=== PATIENT | female | born 1985 | race Caucasian/White ===

== ENCOUNTER 2017-09-29 05:55 | Inpatient (IN) | payer SELFPAY ==
[~2017-09-29] VITALS: Ht 160 cm; Wt 62.6 kg
[2017-09-29] MEDS ORDERED: OXYTOCIN 20 UNITS in LACTATED RINGERS 1,000 ML IV SCH (06:45)
[2017-09-29] MEDS ORDERED: PROMETHAZINE 25 MG/ML VIAL IVP PRN (06:45)
[2017-09-29] MEDS ORDERED: NALBUPHINE HYDROCHLORIDE 10 MG/ML VIAL IVP PRN (06:45)
[2017-09-29 07:11] LABS: BASOPHILS # (AUTO) 0.2 K/uL (0.00-0.22); BASOPHILS % (AUTO) 2.5 % (0.0-2.0); EOSINOPHILS # (AUTO) 0.1 K/uL (0-0.4); EOSINOPHILS % (AUTO) 1.8 % (0.0-4.0); HEMATOCRIT 39.4 % (36-48); HEMOGLOBIN 13.3 g/dL (12.0-16.0); LYMPHOCYTES # (AUTO) 1.3 K/uL (2.5-16.5); LYMPHOCYTES % (AUTO) 17.2 % (20.5-51.1); MEAN CORPUSCULAR HEMOGLOBIN 31 pg (27-31); MEAN CORPUSCULAR HGB CONC 34 g/dL (33-37); MEAN CORPUSCULAR VOLUME 91 fL (80-94); MONOCYTES # (AUTO) 0.6 K/uL (0.8-1.0); MONOCYTES % (AUTO) 8.1 % (1.7-9.3); NEUTROPHILS # (AUTO) 5.5 K/uL (1.8-7.7); NEUTROPHILS % (AUTO) 70.4 % (42.2-75.2); PLATELET COUNT (AUTO) 212 K/uL (140-450); RED BLOOD CELL COUNT(AUTO) 4.34 MIL/uL (4.20-5.40); RED CELL DISTRIBUTION WIDTH 13.8 % (11.6-13.7); WHITE BLOOD COUNT (AUTO) 7.7 K/uL (4.8-10.8)
[2017-09-29 07:20] LABS: CARBON DIOXIDE 22.4 mmol/L (21-32); POTASSIUM 3.5 mmol/L (3.5-5.1)
[2017-09-29 07:21] LABS: ANION GAP 16.1 (8-16); CREATININE 0.7 mg/dL (0.6-1.3)
[2017-09-29 07:22] LABS: APPEARANCE,URINE CLEAR (CLEAR); BILIRUBIN,URINE NEGATIVE (NEGATIVE); BLOOD, URINE NEGATIVE (NEGATIVE); COLOR,URINE YELLOW (YELLOW); LEUKOCYTE ESTERASE ,URINE NEGATIVE (NEGATIVE); NITRITE, URINE NEGATIVE (NEGATIVE); UGLUCOSE NEGATIVE (NEGATIVE)
[2017-09-29 07:26] LABS: ALBUMIN 2.5 g/dL (3.4-5.0); TOTAL BILIRUBIN 0.3 mg/dL (0.0-1.0)
[2017-09-29] MEDS ORDERED: OXYTOCIN 10 UNITS/ML VIAL IM SCH (07:30)
[2017-09-29] MEDS: LACTATED RINGERS 1,000 ML IV SCH ×2 (07:45→14:45)
[2017-09-29] MEDS ORDERED: AMPICILLIN 2,000 MG in NACL 0.9% 100 ML IV ONE (08:00)
--- NOTE | 2017-09-29 08:54 | NUR ---
PATIENT HAS BEEN SCREENED AND CATEGORIZED LOW NUTRITION RISK. PATIENT WILL BE SEEN WITHIN 7 DAYS OF ADMISSION. 10/05/[address]
[2017-09-29] MEDS: AMPICILLIN 1,000 MG in NACL 0.9% 50 ML IV SCH ×3 (12:59→20:46)
[2017-09-29 14:37] LABS: RAPID PLASMA REAGIN NON-REACTIVE (Non Reactiv)
[2017-09-29] MEDS ORDERED: AMPICILLIN 1,000 MG VIAL ONE ×2 (16:35→20:20)
[2017-09-29] MEDS ORDERED: MISOPROSTOL 25 MCG TAB ONE (16:44)
[2017-09-29] MEDS ORDERED: MISOPROSTOL 25 MCG TAB PO SCH (16:45)
[2017-09-29] MEDS ORDERED: NALBUPHINE HYDROCHLORIDE 10 MG/ML VIAL ONE (21:30)
[2017-09-29] MEDS ORDERED: PROMETHAZINE 25 MG/ML VIAL ONE (21:31)
[2017-09-29] MEDS ORDERED: OXYTOCIN 10 UNITS/ML VIAL ONE (23:49)
[2017-09-30] MEDS ORDERED: LIDOCAINE 1% 50 ML ONE (00:21)
[2017-09-30] MEDS ORDERED: MEASLES, MUMPS, AND RUBELLA 1 VIAL SQVAC PRN (00:35)
[2017-09-30] MEDS ORDERED: BENZOCAINE/MENTHOL 20%-0.5% 60 GM CAN TP PRN (00:35)
[2017-09-30] MEDS ORDERED: TEMAZEPAM 15 MG CAP PO PRN (00:35)
[2017-09-30] MEDS ORDERED: METHYLERGONOVINE 0.2 MG/ML AMP IM PRN (00:35)
[2017-09-30] MEDS ORDERED: oxyCODONE/APAP 5/325 MG 1 TAB TAB PO PRN (00:35)
[2017-09-30] MEDS ORDERED: HYDROcodone/APAP 5/325 MG 1 TAB TAB PO PRN (00:35)
[2017-09-30] MEDS ORDERED: IBUPROFEN 800 MG TAB ONE (02:19)
[2017-09-30] MEDS: IBUPROFEN 800 MG TAB PO PRN ×3 (02:21→21:40)
[2017-09-30] MEDS: LEVOTHYROXINE 0.025 MG TAB PO SCH (08:19)
[2017-10-01] MEDS ORDERED: INFLUENZA VIRUS VACCINE QUAD 0.5 ML SYR IMVAC SCH (02:40)
[2017-10-01 07:38] LABS: HEMOGLOBIN 10.9 g/dL (12.0-16.0)
[2017-10-01] MEDS: LEVOTHYROXINE 0.025 MG TAB PO SCH (07:51)
[2017-10-01] MEDS ORDERED: IBUP-1842 PO (10:45)
[2017-10-01] MEDS ORDERED: DOCUSATE SOD/SENNA 50/8.6 MG 1 TAB PO SCH (21:00)
== END 2017-10-01 14:30 | disposition home or self-care (01) | DRG 775 ==
LOC: MLD 05:55 → MFCC 09-30 02:50
PROVIDERS: ADMIT Obstetrics & Gynecology; ATTEND Obstetrics & Gynecology
PROC: 10E0XZZ Delivery of Products of Conception, External Approach (ICD-10-PCS; principal; 2017-09-30)
PROC: 0KQM0ZZ Repair Perineum Muscle, Open Approach (ICD-10-PCS; 2017-09-30)
PROC: 3E0234Z Introduction of Serum, Toxoid and Vaccine into Muscle, Percutaneous Approach (ICD-10-PCS; 2017-10-01)
PROC: 3E0234Z Introduction of Serum, Toxoid and Vaccine into Muscle, Percutaneous Approach (ICD-10-PCS; 2017-10-01)
PROC: 3E0234Z Introduction of Serum, Toxoid and Vaccine into Muscle, Percutaneous Approach (ICD-10-PCS; 2017-10-01)
DX: O42.92 Full-term premature rupture of membranes, unspecified as to length of time between rupture and onset of labor (principal); O24.420 Gestational diabetes mellitus in childbirth, diet controlled; E03.9 Hypothyroidism, unspecified; O99.284 Endocrine, nutritional and metabolic diseases complicating childbirth; O70.1 Second degree perineal laceration during delivery; Z37.0 Single live birth; Z3A.39 39 weeks gestation of pregnancy; Z23 Encounter for immunization; Z83.3 Family history of diabetes mellitus; Z80.42 Family history of malignant neoplasm of prostate; Z83.49 Family history of other endocrine, nutritional and metabolic diseases; Z91.09 Other allergy status, other than to drugs and biological substances
CPT/HCPCS: 36415; 59200; 59409; 80053; 81003; 85018; 85025; 86592; 86762; 86886; 86900; 86901; 90658; 90707; 90715; J0290; J2001; J2300; J2550; J2590; J7120

== ENCOUNTER 2019-06-23 18:51 | Inpatient (IN) | payer SELFPAY ==
[~2019-06-23] VITALS: Ht 160 cm; Wt 65.3 kg
[~2019-06-23 18:51] MED LIST: IBUP-1842 PO
[2019-06-23] MEDS ORDERED: PREN-380 PO (20:47)
[2019-06-23] MEDS ORDERED: SYN.075 PO (20:48)
[2019-06-23] MEDS ORDERED: LACTATED RINGERS 1,000 ML IV SCH (20:50)
[2019-06-23] MEDS ORDERED: PROMETHAZINE 25 MG/ML VIAL IM PRN (20:50)
[2019-06-23 21:43] LABS: BASOPHILS % (AUTO) 0.3 % (0.0-2.0); EOSINOPHILS % (AUTO) 0.4 % (0.0-4.0); HEMATOCRIT 40.5 % (36-48); HEMOGLOBIN 13.6 g/dL (12.0-16.0); LYMPHOCYTES # (AUTO) 1.5 K/uL (2.5-16.5); LYMPHOCYTES % (AUTO) 15.2 % (20.5-51.1); MEAN CORPUSCULAR HEMOGLOBIN 32 pg (27-31); MEAN CORPUSCULAR HGB CONC 34 g/dL (33-37); MONOCYTES # (AUTO) 0.7 K/uL (0.8-1.0); MONOCYTES % (AUTO) 6.9 % (1.7-9.3); NEUTROPHILS # (AUTO) 7.9 K/uL (1.8-7.7); NEUTROPHILS % (AUTO) 77.2 % (42.2-75.2); PLATELET COUNT (AUTO) 188 K/uL (140-450); RED BLOOD CELL COUNT(AUTO) 4.26 MIL/uL (4.20-5.40); RED CELL DISTRIBUTION WIDTH 14.4 % (11.6-13.7); WHITE BLOOD COUNT (AUTO) 10.2 K/uL (4.8-10.8)
[2019-06-23 21:54] LABS: ANION GAP 12.4 (8-16); CARBON DIOXIDE 23.2 mmol/L (21-32); CREATININE 0.7 mg/dL (0.6-1.3); POTASSIUM 3.6 mmol/L (3.5-5.1)
[2019-06-23] MEDS ORDERED: NALBUPHINE 10 MG/ML AMP ONE ×2 (21:58→23:44)
[2019-06-23 21:59] LABS: ALBUMIN 2.7 g/dL (3.4-5.0); TOTAL BILIRUBIN 0.6 mg/dL (0.0-1.0)
[2019-06-23] MEDS: NALBUPHINE 10 MG/ML AMP IVP PRN (22:02)
[2019-06-23 22:22] LABS: APPEARANCE,URINE CLEAR (CLEAR); COLOR,URINE YELLOW (YELLOW); UGLUCOSE NEGATIVE (NEGATIVE)
[2019-06-23 22:23] LABS: BILIRUBIN,URINE NEGATIVE (NEGATIVE); BLOOD, URINE TRACE (NEGATIVE); LEUKOCYTE ESTERASE ,URINE NEGATIVE (NEGATIVE); NITRITE, URINE NEGATIVE (NEGATIVE)
[2019-06-23 22:24] LABS: RBC,URINE 0-5 /HPF (0-5); WBC,URINE 0-5 /HPF (0-5)
[2019-06-23] MEDS ORDERED: LIDOCAINE 1% 500 MG/50 ML VIAL ONE (22:58)
[2019-06-23] MEDS ORDERED: OXYTOCIN 20 UNITS/LR PREMIX 1,000 ML IV ONE (22:58)
[2019-06-24] MEDS: NALBUPHINE 10 MG/ML AMP IVP PRN (00:04)
[2019-06-24] MEDS ORDERED: OXYTOCIN 20 UNITS in LACTATED RINGERS 1,000 ML IV SCH (00:05)
[2019-06-24] MEDS ORDERED: LEVO0.124 PO (00:37)
[2019-06-24] MEDS ORDERED: METHYLERGONOVINE 0.2 MG/ML AMP IM PRN (01:30)
[2019-06-24] MEDS ORDERED: MEASLES, MUMPS, AND RUBELLA 1 VIAL SQVAC PRN (01:30)
[2019-06-24] MEDS ORDERED: OXYTOCIN 10 UNITS/ML VIAL IM PRN (01:30)
[2019-06-24] MEDS ORDERED: IBUPROFEN 800 MG TAB PO PRN (01:30)
[2019-06-24] MEDS ORDERED: METHYLERGONOVINE 0.2 MG TAB PO PRN (01:30)
[2019-06-24] MEDS ORDERED: IBUPROFEN 400 MG TAB PO PRN (01:30)
[2019-06-24] MEDS ORDERED: BENZOCAINE/MENTHOL 20%-0.5% 60 GM CAN TP PRN (01:30)
[2019-06-24] MEDS ORDERED: INFLUENZA VACCINE QUAD 0.5 ML SYR IMVAC PRN (02:05)
--- NOTE | 2019-06-24 06:43 | NUR ---
PATIENT HAS BEEN SCREENED AND CATEGORIZED LOW NUTRITION RISK. PATIENT WILL BE SEEN WITHIN 7 DAYS OF ADMISSION. 07/01/19 ALYSSA MOLINA MS, RDN
[2019-06-24] MEDS: LEVOTHYROXINE 0.025 MG TAB PO SCH (08:55)
[2019-06-24] MEDS ORDERED: DOCUSATE SOD/SENNA 50/8.6 MG 1 TAB PO SCH (21:00)
[2019-06-25] MEDS: LEVOTHYROXINE 0.025 MG TAB PO SCH (06:29)
[2019-06-25 11:01] LABS: HEMATOCRIT 37.1 % (36-48); HEMOGLOBIN 12.4 g/dL (12.0-16.0)
== END 2019-06-25 13:45 | disposition home or self-care (01) | DRG 807 ==
LOC: MLD 18:51 → OBSVTOIN 20:55 → MFCC 06-24 04:30
PROVIDERS: ADMIT Obstetrics & Gynecology; ATTEND Obstetrics & Gynecology
PROC: 10E0XZZ Delivery of Products of Conception, External Approach (ICD-10-PCS; principal; 2019-06-24)
PROC: 0KQM0ZZ Repair Perineum Muscle, Open Approach (ICD-10-PCS; 2019-06-24)
DX: O24.429 Gestational diabetes mellitus in childbirth, unspecified control (principal); Z37.0 Single live birth; Z3A.00 Weeks of gestation of pregnancy not specified; O70.1 Second degree perineal laceration during delivery; Z3A.39 39 weeks gestation of pregnancy
CPT/HCPCS: 36415; 59409; 80053; 81001; 85018; 85025; 86592; 86886; 86900; 86901; 90715; G0378; J2001; J2300; J2590; J7120